=== PATIENT | male | born 1985 | race African-American/Black ===

== ENCOUNTER 2020-04-25 13:16 | Emergency (ER) | payer SELFPAY ==
--- NOTE | 2020-04-25 13:30 | ED.GENADULT ---
HPI - General Adult General Chief complaint: Urogenital-Male Stated complaint: std exposure Time Seen by Provider: 04/25/20 13:57 Source: patient Mode of arrival: ambulatory Limitations: no limitations History of Present Illness HPI narrative: 34-year-old male patient presents to the the medical center requesting STD testing. Patient states that his came up positive for chlamydia couple of days ago. Patient states he is here to be tested. Patient denies any symptoms. Denies any pain with urination, penile discharge, abdominal pain, nausea, vomiting or diarrhea. Denies any low back pain or fevers. Related Data Allergies Allergy/AdvReac Type Severity Reaction Status Date / Time No Known Allergies Allergy Verified 09/18/19 14:01 Review of Systems Review of Systems: Narrative: CONSTITUTIONAL: Denies fever, chills, or sweats. EYES: Denies visual changes, redness, or discharge. ENT: Denies rhinorrhea, congestion, sore throat, or otalgia. CARDIOVASCULAR: Denies chest pain, palpitations, or edema. RESPIRATORY: Denies cough or dyspnea. GASTROINTESTINAL: Denies abdominal pain, nausea, vomiting, or diarrhea. GENITOURINARY: Denies dysuria or hematuria. SKIN: Denies rash or itching. MUSCULOSKELETAL: Denies back pain, joint pain, or myalgia. NEUROLOGIC: Denies headache, numbness, or weakness. PSYCHIATRIC: Denies anxiety or depression. [facility] Social History Social History Gender identity (if verbalized by the patient): Male Comments At the time of my signature I agree with nursing past medical history, surgical, social, and family history. There is no relevant family history pertinent to the presenting complaint. Exam Narrative: Exam Narrative: GENERAL: Well-appearing, well-nourished, and in no acute distress. HEAD: Normocephalic, atraumatic. EYES: PERRLA and EOMI. ENT: Nares clear, no rhinorrhea or epistaxis. Mucous membranes moist. NECK: Supple. No lymphadenopathy CHEST: Clear to auscultation. No respiratory distress. HEART: Regular rate and rhythm. No murmur heard. Normal peripheral pulses. ABDOMEN: Soft, nontender, nondistended, normal active bowel sounds. No CVA tenderness on percussion. EXTREMITIES: Normal range of motion. No edema. SKIN: Warm, dry, no rash. NEURO: No focal deficits. Alert and oriented x3. Course Vital Signs Vital signs: Vital Signs Temperature 37.4 C 04/25/20 13:39 Pulse Rate 91 04/25/20 13:39 Respiratory Rate 18 04/25/20 13:39 Blood Pressure 135/73 04/25/20 13:39 Pulse Oximetry 98 04/25/20 13:39 Temperature 37.4 C 04/25/20 13:39 Pulse Rate 91 04/25/20 13:39 Respiratory Rate 18 04/25/20 13:39 Blood Pressure 135/73 04/25/20 13:39 Pulse Oximetry 98 04/25/20 13:39 Vital signs reviewed. Medical Decision Making Differential Diagnosis Differential Diagnosis: Differential diagnosis: Gonorrhea, chlamydia, Trichomonas, bacterial vaginosis, herpes, HIV, yeast infection, urinary tract infection. Uncomplicated lower UTI, uncomplicated UTI, polynephritis, penile trauma,balanoposthitis, phimosis, paraphimosis, testicular torsion, epididymitis, prostatitis, varicocele, spermatocele, hydrocele, hernia. Discussed with patient that we will go ahead and test him for gonorrhea, chlamydia and trichomonas today. Discussed with him we will send this off to the lab for further evaluation. Discussed with him that we will go ahead and give him the treatment in the clinic today. Discussed with him that if the trichomonas does come back positive we will send him in an antibiotic at that time. Discussed with patient that we do not test for all STDs here and it is highly recommend that he go get a full panel of testing at an STD clinic or the health department. Discussed with patient if he continues to have symptoms despite being treated then he would need to follow-up with his primary doctor. Discussed with him is very important that
[2020-04-25 13:39] VITALS: BP 135/73; PULSE 91; RESP 18; TEMP 37.4; O2SAT 98
[2020-04-25] MEDS: cefTRIAXone 250 MG VIAL IM (14:09)
[2020-04-25] MEDS: AZITHROMYCIN 250 MG TABLET 1000 MG PO (14:09)
[2020-04-25] MEDS: LIDOCAINE HCL 1% LOCAL INJ 20 ML VIAL IM (14:10)
== END 2020-04-25 14:30 | disposition home or self-care (01) ==
PROVIDERS: Emergency Provider Nurse Practitioner Family
DX: Z20.2 Contact with and (suspected) exposure to infections with a predominantly sexual mode of transmission (principal)
CPT/HCPCS: 87491; 87591; 87661; 99213; A9270; G0463; J0696

== ENCOUNTER 2022-04-09 08:26 | Emergency (ER) | payer SELFPAY ==
[2022-04-09 08:41] VITALS: BP 142/86; PULSE 88; RESP 16; TEMP 36.7; O2SAT 99
--- NOTE | 2022-04-09 08:41 | ED.EYEPROB ---
HPI - Eye Problem General Chief complaint: Eye Problems Stated complaint: danii eye redness Time Seen by Provider: 04/09/22 08:41 Source: patient Mode of arrival: ambulatory Limitations: no limitations History of Present Illness HPI Narrative: 36-year-old male presents with complaint of irritation and redness to both eyes. States that started to right left eye 2 days ago and has now spread to right eye. No vision changes. Reports that all of his kids have had runny noses and coughs. Has been wiping their noses and thinks he got an infection from them. Will come today with yellow matting to eyes eyelashes stuck together. All systems reviewed and negative except as noted above. Related Data Allergies Allergy/AdvReac Type Severity Reaction Status Date / Time No Known Allergies Allergy Verified 09/18/19 14:01 Review of Systems Review of Systems: CONSTITUTIONAL: Denies fever, chills, or sweats. EYES: Denies visual changes. Reports redness, discharge, irritation. ENT: Denies rhinorrhea, congestion, sore throat, or otalgia. CARDIOVASCULAR: Denies chest pain, palpitations, or edema. RESPIRATORY: Denies cough or dyspnea. GASTROINTESTINAL: Denies abdominal pain, nausea, vomiting, or diarrhea. GENITOURINARY: Denies dysuria or hematuria. SKIN: Denies rash or itching. MUSCULOSKELETAL: Denies back pain, joint pain, or myalgia. NEUROLOGIC: Denies headache, numbness, or weakness. PSYCHIATRIC: Denies anxiety or depression. All other systems reviewed are negative, except as documented in HPI. [facility] Social History Social History Gender identity (if verbalized by the patient): Male Comments At time of signature, agree with nursing past medical, surgical, social and family history. There is no relevant family history pertinent to the presenting complaint. Exam Narrative: GENERAL: This is a well-nourished, well-developed patient, in no apparent distress. HEAD: normocephalic, atraumatic. EYES: PERRL. Sclera and conjunctive erythematous, injected bilateral. Yellow ropey drainage. Conjunctive mildly swollen. Vision is grossly intact. EARS: External ears normal NOSE: External nose normal NECK: Neck supple, non-tender without lymphadenopathy, masses or thyromegaly. CARDIOVASCULAR: Regular rate and rhythm without murmurs, gallops, or rubs. RESPIRATORY: Clear to auscultation. Breath sounds equal bilaterally. No wheezes, rales, or rhonchi. SKIN: warm, Dry, intact with no suspicious lesions or rash, good texture and turgor. NEURO: awake, alert, and oriented to person, place and time. There were no obvious focal neurologic abnormalities. EXTREMITIES: Normal range of motion to all extremities. Course Course Level of Care: Express Care Visit Vital Signs Vital signs: Vital Signs Temperature 36.7 C 04/09/22 08:41 Pulse Rate 88 04/09/22 08:41 Respiratory Rate 16 04/09/22 08:41 Blood Pressure 142/86 H 04/09/22 08:41 Pulse Oximetry 99 04/09/22 08:41 Oxygen Delivery Room Air 04/09/22 08:41 Temperature 36.7 C 04/09/22 08:41 Pulse Rate 88 04/09/22 08:41 Respiratory Rate 16 04/09/22 08:41 Blood Pressure 142/86 H 04/09/22 08:41 Pulse Oximetry 99 04/09/22 08:41 Oxygen Delivery Room Air 04/09/22 08:41 Reviewed MDM - Eye Problem MDM Narrative Medical decision making narrative: Patient is aware of diagnosis, understands and agrees to treatment plan. Anticipatory guidance given. Patient agrees to follow-up as directed and is aware of reasons to seek care at the emergency department. Portions of this record may have been created with voice recognition software Differential Diagnosis Differential diagnosis: Likely corneal abrasion, conjunctivitis and corneal ulcer Discharge Plan Discharge Clinical Impression: Acute bacterial conjunctivitis of both eyes Patient Disposition: Home, Self-Care Condition: Stable Instructions: Antibioti
== END 2022-04-09 09:08 | disposition home or self-care (01) ==
PROVIDERS: Emergency Provider Nurse Practitioner Family
DX: H10.33 Unspecified acute conjunctivitis, bilateral (principal)
CPT/HCPCS: 99213; G0463

== ENCOUNTER 2022-08-25 16:41 | Emergency (ER) | payer OTHER, SELFPAY ==
[2022-08-25 16:52] VITALS: BP 137/84; PULSE 87; RESP 16; TEMP 37.2; O2SAT 100
--- NOTE | 2022-08-25 17:29 | ED.MALEGU ---
HPI - Male Genitourinary General Chief complaint: Urogenital-Male Stated complaint: STD Time Seen by Provider: 08/25/22 17:20 Source: patient and RN notes reviewed Mode of arrival: ambulatory Limitations: no limitations History of Present Illness HPI Narrative: 36-year male presented for STD check. He currently denies any symptoms but states his girlfriend is having some is making him get evaluated. Related Data Home Medications Medication Instructions Recorded Confirmed No Home Medications 08/25/22 08/25/22 Allergies Allergy/AdvReac Type Severity Reaction Status Date / Time No Known Allergies Allergy Verified 08/25/22 16:59 Review of Systems Review of Systems: CONSTITUTIONAL: Denies body aches, fever, chills, or sweats. CARDIOVASCULAR: Denies chest pain, palpitations, or edema. RESPIRATORY: Denies cough or dyspnea. GASTROINTESTINAL: Denies abdominal pain, nausea, vomiting, or diarrhea. GENITOURINARY: denies urethral discharge or lesions, dysuria, frequency, urgency, hematuria SKIN: Denies rash, itching, or wounds. MUSCULOSKELETAL: Denies back pain or myalgia. [facility] Social History Social History Gender identity (if verbalized by the patient): Male Comments At time of signature, I have reviewed and agree with nursing past medical, surgical, social and family history unless otherwise noted. Please see nursing chart for further information. There is no relevant family history pertinent to the presenting complaint Exam Narrative: GENERAL: Well-appearing ENT: Mucous membranes pink and moist. CHEST: Clear to auscultation. HEART: Regular rate and rhythm. ABDOMEN: Soft, nontender, nondistended, normal active bowel sounds. SKIN: Warm, dry, no rash. NEURO: Alert and oriented x3. Gait steady. Course Course Emergency Course: Patient is aware of diagnosis, understands and agrees to treatment plan. Anticipatory guidance given. Patient agrees to follow-up as directed and is aware of reasons to seek care at the emergency department. Portions of this record may have been created with voice recognition software Level of Care: Express Care Visit Vital Signs Vital signs: Vital Signs Temperature 99.0 F 08/25/22 16:52 Pulse Rate 87 08/25/22 16:52 Respiratory Rate 16 08/25/22 16:52 Blood Pressure 137/84 08/25/22 16:52 Pulse Oximetry 100 08/25/22 16:52 Oxygen Delivery Room Air 08/25/22 16:52 Temperature 99.0 F 08/25/22 16:52 Pulse Rate 87 08/25/22 16:52 Respiratory Rate 16 08/25/22 16:52 Blood Pressure 137/84 08/25/22 16:52 Pulse Oximetry 100 08/25/22 16:52 Oxygen Delivery Room Air 08/25/22 16:52 Reviewed MDM - Male Genitourinary MDM Narrative Medical decision making narrative: Patient presenting with concern for STD. Urine specimen collected for GC, chlamydia, trich. Informed Pt will be contacted w/ results when they become available if they are positive. Discussed with patient that it takes up to 7 days for results of cultures to be released and explained that we may treat empirically at this time. Declines treatment at this time and will return should tests be positive. I have instructed the patient to return to the ER at any time if there are any new or worsening symptoms. The patient expressed understanding of and agreement with this plan. Differential Diagnosis Differential diagnosis: Likely urinary tract infection, urethritis and other (concern for std ) Discharge Plan Discharge Clinical Impression: Concern about STD in male without diagnosis Patient Disposition: Home, Self-Care Condition: Stable Instructions: Sexually Transmitted Diseases (ED) Additional Instructions: Your urine sample has been sent off to test for gonorrhea, chlamydia, and trichomonas infections. You will be called if any of your tests come back positive. These tests can take up to 5-7 days to come
== END 2022-08-25 17:34 | disposition home or self-care (01) ==
PROVIDERS: Emergency Provider Nurse Practitioner Family
DX: Z11.3 Encounter for screening for infections with a predominantly sexual mode of transmission (principal)
CPT/HCPCS: 99211; 99213; G0463